=== PATIENT | female | born 1965 | race Two or more races ===

== ENCOUNTER 2023-12-24 13:33 | Outpatient (CLI) | payer OTHER | END 2023-12-24 13:34 | disposition home or self-care (01) | LOC: NUCLEAR 13:33 | PROVIDERS: ATTEND Internal Medicine | DX: E78.9 Disorder of lipoprotein metabolism, unspecified (principal); I10 Essential (primary) hypertension; E03.9 Hypothyroidism, unspecified; M81.0 Age-related osteoporosis without current pathological fracture ==

== ENCOUNTER 2024-01-21 08:36 | Outpatient (CLI) | payer OTHER | END 2024-01-21 08:50 | disposition home or self-care (01) | LOC: MAMO-SONO 08:36 | PROVIDERS: ATTEND Internal Medicine | DX: N63.0 Unspecified lump in unspecified breast (principal); N60.11 Diffuse cystic mastopathy of right breast; N60.12 Diffuse cystic mastopathy of left breast; I10 Essential (primary) hypertension; Z01.810 Encounter for preprocedural cardiovascular examination; E03.9 Hypothyroidism, unspecified; E78.9 Disorder of lipoprotein metabolism, unspecified; E11.51 Type 2 diabetes mellitus with diabetic peripheral angiopathy without gangrene; E11.9 Type 2 diabetes mellitus without complications; E66.89 Other obesity not elsewhere classified; Z12.72 Encounter for screening for malignant neoplasm of vagina; Z12.11 Encounter for screening for malignant neoplasm of colon; N63.11 Unspecified lump in the right breast, upper outer quadrant ==

== ENCOUNTER 2024-06-07 11:41 | Outpatient (CLI) | payer OTHER | END 2024-06-07 12:00 | disposition home or self-care (01) | LOC: TOM 11:41 | DX: Z12.11 Encounter for screening for malignant neoplasm of colon (principal) ==

== ENCOUNTER → 2024-11-24 08:11 | Outpatient (CLI) | payer OTHER ==
[2024-11-24 09:46] LABS: ob NEGATIVE (NEGATIVE)
== END | disposition home or self-care (01) ==
LOC: LAB 08:11
PROVIDERS: ATTEND Internal Medicine Gastroenterology
DX: Z12.11 Encounter for screening for malignant neoplasm of colon (principal)